=== PATIENT | male | born 1985 | race African-American/Black ===

== ENCOUNTER 2017-06-07 17:39 | Emergency (ER) | payer OTHER ==
[~2017-06-07] VITALS: Ht 182.9 cm; Wt 113.4 kg
== END 2017-06-07 19:11 | disposition home or self-care (01) ==
LOC: ER 17:39
DX: S31.31XA Laceration without foreign body of scrotum and testes, initial encounter (principal); W45.8XXA Other foreign body or object entering through skin, initial encounter; Y93.89 Activity, other specified; Y92.89 Other specified places as the place of occurrence of the external cause; Y99.8 Other external cause status